=== PATIENT | female | born 1950 | race Caucasian/White ===

== ENCOUNTER 2017-09-27 11:46 | Day surgery (SDC) | payer MEDICARE, OTHER ==
[2017-09-27] MEDS ORDERED: ALBUTEROL 0.083% (NEB) 2.5 MG/3 ML AMP (18:35)
[2017-09-27] MEDS ORDERED: MIDAZOLAM 1 MG/ML 2 ML INJ (18:35)
[2017-09-27] MEDS ORDERED: BACITRACIN/POLYMYXIN 28.35 GM OINT TOP (18:40)
[2017-09-27] MEDS ORDERED: PROPOFOL 20 ML (18:55)
[2017-09-27] MEDS ORDERED: ROCURONIUM 50 MG INJ (18:55)
[2017-09-27] MEDS ORDERED: LIDOCAINE 1% (MDV) 20 ML INJ (18:55)
[2017-09-27] MEDS ORDERED: CEFAZOLIN 1 GM INJ (19:14)
[2017-09-27] MEDS ORDERED: LABETALOL HCL 20MG INJ (19:14)
[2017-09-27] MEDS ORDERED: ONDANSETRON 4 MG INJ (19:17)
[2017-09-27] MEDS: OXYMETAZOLINE 0.05% 15 ML NAS SPRAY NASAL (19:18)
[2017-09-27] MEDS: COCAINE 4% 4 ML TOP (19:18)
[2017-09-27] MEDS: LIDOCAINE 1%/EPI 30 ML INJ (19:18)
[2017-09-27] MEDS ORDERED: PHENYLephrine (100 MCG/ML) 5ML SYG (19:28)
[2017-09-27] MEDS ORDERED: SUGAMMADEX SODIUM 200 MG/2 ML VIAL IV (19:31)
[2017-09-27] MEDS ORDERED: DEXAMETHASONE 4 MG/ML 1 ML INJ (19:51)
[2017-09-27] MEDS ORDERED: OXYCODONE/ACETAMINOPHEN (5/325) TAB PO (20:00)
[2017-09-27] MEDS ORDERED: ONDANSETRON 4 MG INJ IV (20:00)
[2017-09-27] MEDS: DEXAMETHASONE 10 MG/ML 1 ML INJ IV (20:19)
== END 2017-09-27 20:50 | disposition home or self-care (01) ==
LOC: SDS 11:46
DX: J32.8 Other chronic sinusitis (principal)
CPT/HCPCS: 31237; 88307